=== PATIENT | male | born 1970 | race Caucasian/White ===

== ENCOUNTER 2024-02-10 15:56 | Emergency (ER) | payer OTHER, SELFPAY ==
[2024-02-10] VITALS (17 sets, daily range): BP systolic 185–224; BP diastolic 108–178; PULSE 91–115; RESP 18–35; TEMP 36.5; O2SAT 95–100
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
--- NOTE | 2024-02-10 15:59 | ECG_ITS ---
Test Date: 2024-02-10 16:17:39 Measurements Intervals [place] Rate: 102 P: 27 [place]: 140 QRS: -64 QRSD: 137 T: 108 QT: 380 QTc: 496 Interpretive Statements SINUS TACHYCARDIA LEFT ATRIAL ENLARGEMENT LEFT BUNDLE BRANCH BLOCK ABNORMAL ECG No previous ECG available for comparison Electronically Signed On 02-10-2024 19:02:08 [employer] by Pavel Huggins D.O.
[2024-02-10 16:16] LABS: Basophils Percent Auto 0.3 % (0.2-1.2); Eosinophils Absolute Auto 0.1 K/mm3 (0-0.3); Eosinophils Percent Auto 0.7 % (0-4.4); Hematocrit 44.2 % (42.0-52.0); Hemoglobin 14.8 g/dL (14.0-18.0); Immature Granulocyte Absolute 0.02 K/mm3 (0.00-0.031); Immature Granulocyte Percent A 0.3 % (0-0.5); Lymphocytes Percent Auto 18.7 % (18.3-44.2); Mean Corpuscular HGB Conc 33.5 g/dl (32-36); Mean Corpuscular Volume 89.5 fl (80-100); Monocytes Absolute Auto 0.5 K/mm3 (0.1-0.6); Monocytes Percent Auto 6.8 % (2.6-8.5); Neutrophils Absolute Auto 5.5 K/mm3 (1.3-6.7); Neutrophils Percent Auto 73.2 % (45.5-73.1); Platelet Count Result 192 k/mm3 (150-375); Red Blood Count 4.94 M/mm3 (4.6-6.20); Red Cell Distribution Width 12.7 % (11.5-14.5); White Blood Count 7.5 K/mm3 (4.5-10.0)
[2024-02-10 16:22] LABS: Add Urine Microscopic? YES; Appearance Urine Clear (Clear); Bacteria Urine None Seen /hpf; Bilirubin Urine Negative (Negative); Blood Urine 1+ (Negative); Color Urine Yellow (Yellow); Glucose Urine UA Negative (Negative); Ketones Urine Trace mg/dL (Negative); Leukocyte Esterase Ur Negative LEU/UL (Negative); Nitrate Urine Negative (Negative); Non Pathogenic Casts 0-2; Protein Urine 3+ mg/dL (Negative); RBC Urine 0-2 /hpf (0-2); Squamous Epithelial Cell Urine None Seen /hpf (Few); Urobilinogen Urine 0.2 mg/dL (<2.0); WBC Urine 0-5 /hpf (0-3)
[2024-02-10 16:28] LABS: Partial Thromboplastin Time 28.3 Seconds (22.3-36.8); Prothrombin Time 13.6 Seconds (11.1-14.7)
[2024-02-10 16:30] LABS: Alanine Aminotransferase 26 U/L (6-50); Alkaline Phosphatase 72 U/L (38-126); Anion Gap 9 mmol/L (4-12); Aspartate Amino Transferase 41 U/L (17-59); Bilirubin,Total 1.4 mg/dL (0.2-1.3); Blood Urea Nitrogen 20 mg/dL (9-20); Calcium 9.2 mg/dL (8.4-10.2); Carbon Dioxide 27 mmol/L (22-30); Chloride 100 mmol/L (98-107); Estimated CRCL calculation 76 ml/min; Estimated Glomerular Filt Rate > 60; Glucose 154 mg/dL (65-110); Potassium 4.1 mmol/L (3.4-5.0); Sodium 136 mmol/L (137-145)
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
[2024-02-10 17:36] LABS: Troponin I 0.074 ng/mL (0.000-0.034)
[2024-02-10] MEDS: Please add drug allergy info to patient profile. 1 EACH XX (18:45)
[2024-02-10] MEDS: niCARdipine 20 MG/200 ML 20 MG/200 ML BAG 50 MG IV CONT (18:46)
== END 2024-02-10 19:32 | disposition short-term general hospital (02) ==
LOC: ANHED 17:42
PROVIDERS: Emergency Provider Emergency Medicine
DX: I62.9 Nontraumatic intracranial hemorrhage, unspecified (principal); R41.82 Altered mental status, unspecified; I16.9 Hypertensive crisis, unspecified
CPT/HCPCS: 36415; 70450; 80053; 81001; 84484; 85025; 85610; 85730; 93005; 96365; 99285; J2404